=== PATIENT | male | born 1965 | race Caucasian/White ===

== ENCOUNTER 2022-08-05 12:14 | Observation (INO) | payer OTHER ==
--- NOTE | 2022-08-05 13:02 | ED ---
Chest Pain HPI - General Chief Complaint: Chest Pain Stated Complaint: Chest pain Time Seen by Provider: 08/05/22 12:24 Source: patient, RN/MD, RN notes reviewed Mode of arrival: ambulatory Limitations: no limitations - History of Present Illness Initial Comments: 56-year-old male presents emergency Department from [facility] for chest pain. Patient states she started not feeling well states his blood pressure elevating had some chest pressure, head pressure. Patient states he has had a significant cardiac history in which she had a wave one year ago. He states he recently moved from [place]. He has been followed by cardiology and is scheduled for a stress test. Patient states that he does feel improved his blood pressure was elevated upon arrival to [facility]* - Related Data Home Medications Medication Instructions Recorded Confirmed Apixaban [Eliquis] 5 mg PO BID 08/05/22 08/05/22 Azilsartan Medoxomil [Edarbi] 40 mg PO HS 08/05/22 08/05/22 Rosuvastatin Calcium [Crestor] 40 mg PO HS 08/05/22 08/05/22 Sotalol [Betapace] 40 mg PO BID 08/05/22 08/05/22 Spironolactone [Aldactone] 25 mg PO DAILY 08/05/22 08/05/22 Allergies Allergy/AdvReac Type Severity Reaction Status Date / Time No Known Allergies Allergy Verified 08/05/22 12:35 Review of Systems ROS Statement: Those systems with pertinent positive or pertinent negative responses have been documented in the HPI. ROS Other: All systems not noted in ROS Statement are negative. EKG Findings - EKG Comments: EKG Findings:: EKG performed at 12:26 sinus rhythm rate of 68 IL 150 QRS 98 QT/QTC 366 383 - EKG Results: EKG: interpreted by ENRIQUE Past Medical History Past Medical History: Hypertension History of Any Multi-Drug Resistant Organisms: None Reported Past Surgical History: Unable to Obtain Past Psychological History: No Psychological Hx Reported Smoking Status: Never smoker Past Alcohol Use History: None Reported Past Drug Use History: None Reported Course Vital Signs 08/05/22 08/05/22 08/05/22 12:16 12:44 13:00 Temperature 98.6 F Pulse Rate 72 74 73 Respiratory 18 14 10 L Rate Blood Pressure 136/98 140/124 144/106 O2 Sat by Pulse 98 97 97 Oximetry 08/05/22 08/05/22 13:30 14:00 Temperature Pulse Rate 66 Respiratory 17 Rate Blood Pressure 137/101 134/90 O2 Sat by Pulse 97 Oximetry Chest Pain MDM - MDM Was pt. sent in by a medical professional or institution (, MARY, HOSPITALITY ASSOCIATE, urgent care, hospital, or jail...) When possible be specific @ -[facility] Did you speak to anyone other than the patient for history (EMS, parent, family, police, friend...)? What history was obtained from this source @ -[facility] physician in all history Did you review nursing and triage notes (agree or disagree)? Why? @ -I reviewed and agree with nursing and triage notes Were old charts reviewed (outside hosp., previous admission, EMS record, old EKG, old radiological studies, urgent care reports/EKG's, jail records)? Report findings @ -No old charts were reviewed Differential Diagnosis (chest pain, altered mental status, abdominal pain women, abdominal pain men, vaginal bleeding, weakness, fever, dyspnea, syncope, headache, dizziness, GI bleed, back pain, seizure, CVA, palpatations, mental health, musculoskeletal)? @ -Differential Chest Pain: Stable Angina, Unstable Angina, STEMI, NSTEMI Aortic Dissection, Pneumothorax, Musculoskeletal, Esophageal Spasm GERD, Cholecystitis, Pancreatitis, Zoster, this is not meant to be an all-inclusive list. le EKG interpreted by me (3pts min.). @ -As above X-rays interpreted by me (1pt min.). @ -None done CT interpreted by me (1pt min.). @ -None done U/S interpreted by me (1pt. min.). @ -None done What testing was considered but not performed or refused? (CT, X-rays, U/S, l abs)? Why? @ -None What meds were considered but not given or refused? Why? @ -None Did you discuss the management of the patient with other professionals (professionals i.e. MARY Villareal, HOSPITALITY ASSOCIATE, lab, RT, psych nurse, social media editor, induction machine setter, teacher, equal employment opportunity officer, field case manager)? Give summary @ -Discussed the case with Dr. Matta for admission with cardiology rule out] Was smoking cessation discussed for >3mins.? @ -No Was critical care preformed (if so, how long)? @ -No Were there social determinants of health that impacted care today? How? (Homelessness, low income, unemployed, alcoholism, drug addiction, kaba sportation, low edu. Level, literacy, decrease access to med. care, prison, rehab)? @ -No Was there de-escalation of care discussed even if they declined (Discuss DNR or withdrawal of care, Hospice)? DNR status @ -No What co-morbidities impacted this encounter? (DM, HTN, Smoking, COPD, CAD, Cancer, CVA, ARF, Chemo, Hep., AIDS, mental health diagnosis, sleep apnea, morbid obesity)? @ -None Was patient admitted / discharged? Hospital course, mention meds given and route, prescriptions, significant lab abnormalities, going to OR and other pertinent info. @ -Admitted patient has significant cardiac history initial troponin, EKG unremarkable patient will be admitted for cardiac rule out Undiagnosed new problem with uncertain prognosis? @ -No Drug Therapy requiring intensive monitoring for toxicity (Heparin, Nitro, Insulin, Cardizem)? @ -No Were any procedures done? @ -No Diagnosis/symptom? @ -Chest pain Acute, or Chronic, or Acute on Chronic? @ -Acute Uncomplicated (without systemic symptoms) or Complicated (systemic symptoms)? @ -Uncomplicated Side effects of treatment? @ -No Exacerbation, Progression, or Severe Exacerbation? @ -No Poses a threat to life or bodily function? How? (Chest pain, [place], [place], pneumonia, PE, COPD, DKA, ARF, appy, cholecystitis, CVA, Diverticulitis, Homicidal, Suicidal, threat to staff... and all critical care pts) @ -yes patient has chest pain Disposition Clinical Impression: Chest pain Disposition: ADMITTED IP TO THIS HOSP Condition: Fair Time of Disposition: 13:02
[2022-08-05] MEDS ORDERED: NITROGLYCERIN SL TABS 0.4 MG TAB SUBLINGUAL PRN (13:18)
--- NOTE | 2022-08-05 15:38 | P.HPIM ---
History of Present Illness H&P Date: 08/05/22 HISTORY OF PRESENT ILLNESS This is a 56-year-old male patient not currently established but has a first appointment in October. He has a past medical history of 5 vessel CABG in July 2019 in [facility], hypertension, cardiomyopathy, atrial fibrillation, obstructive sleep apnea not currently on CPAP after losing weight. Cardiac catheterization performed in the setting of a non-ST elevated myocardial infarction in 07/28/2021 revealed LAD proximal ostial 90% and no cyst, mid circumflex 90% stenosis, mid RCA 100% stenosis and patient was recommended for coronary artery bypass graft. Details of the CABG are not available. February 2022, patient developed episode of atrial fibrillation with RVR and converted, continued on sotalol as well as eliquis. He later had a Holter monitor in April which did not reveal evidence of atrial fibrillation and recommended after 6 months without episodes of atrial fibrillation it would be reasonable to switch back to aspirin and monitor for atrial fibrillation. An echocardiogram that was performed 07/29/2021 revealed EF 50%, mild mitral regurgitation, trivial tricuspid regurgitation. A repeat echocardiogram performed 03/09/2022 revealed EF of 55%, mitral valve with trivial regurgitation, mild pulmonary hypertension. Patient states that he and his family recently moved back to [facility] 06/04 from [facility]. He had a checkup at [facility] last and was scheduled for stress test in September. Patient states there was a mixup in his blood pressure medications and he ended up taking two ARB's. Patient was started on Azilsartan but was not told to stop taking Irbesartan. He was feeling dizzy on Wednesday and called the director of events's office and was instructed to stop Irbesartan. On Wednesday, patient was found to have high blood pressure 160/116 he was also lightheaded and was unsteady on his feet. He developed a chest pressure that was a tightness. He states he had all the time and not with physical activity. He drove himself to [facility] where he had a troponin 2 negative, potassium 4.7, creatinine 0.98. His initial blood pressure 178/128. Plan was to transfer him to [facility] but he requested a transfer to [facility] instead. Patient states that he normally walks for an hour every morning on the treadmill. All 3 troponins have been negative. Cholesterol 87, LDL 127, HDL 54. Blood pressure is now 130/86, heart rate in the 60s and 70s. EKG with no acute ST changes. REVIEW OF SYSTEMS Constitutional: No fever, no chills, no night sweats. No weight change. No weakness, fatigue or lethargy. No daytime sleepiness. EENT: No headache. No blurred vision or double vision, no loss of vision. No loss of Hearing, no ringing in the ears, no dizziness. No nasal drainage or congestion. No epistaxis. No sore throat. Lungs: No shortness of breath, cough, no sputum production. No wheezing. Cardiac: Reported chest pain, no lower extremity edema. No palpitations. No paroxysmal nocturnal dyspnea. No orthopnea. Reported lightheadedness or dizziness. No syncopal episodes. Abdominal: No abdominal pain. No nausea, vomiting. No diarrhea. No constipation. No bloody or tarry stools. No loss of appetite. Genitourinary: No dysuria, increased frequency, urgency. No urinary retention. Musculoskeletal: No myalgias. No muscle weakness, no gait dysfunction, no frequent falls. No back pain. No neck pain. Integumentary: No wounds, no lesions. No rash or pruritus. No unusual bruising. No change in hair or nails. Neurologic: No aphasia. No facial droop. No change in mentation. No head injury. No headache. No paralysis. No paresthesia. Psychiatric: No depression. No anxiety. No mood swings. Endocrine: No abnormal blood sugars. No weight change. No excessive sweating or thirst. No cold intolerance. MEDICAL HISTORY Coronary artery disease Hypertension Cardiomyopathy Obstructive sleep apnea, patient scheduled for sleep study August 2022 SURGICAL HISTORY Coronary artery bypass graft of 5 vessel, 08/01/2021, Right shoulder reconstruction [place] [address] Carr Colonoscopy up-to-date 3 months ago 2022, normal SOCIAL HISTORY Patient is a lifelong nonsmoker, no alcohol use, no illicit drug use. 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 He lives at home with his and 7-1/2-year-old son. FAMILY HISTORY Mother at age 77 from colon cancer. Father at age 77 from heart failure with history of alcohol abuse and smoking. Patient is a total of 5 brothers and 5 sisters most probably have hypertension hyperlipidemia. He has one sister that is in hospice for leiomyosarcoma. No family history of coronary artery disease or diabetes. Patient has one 7 and [id number] son. PHYSICAL EXAMINATION Gen: This A 56-year-old male. Descended chair in the emergency center appears to be in no acute distress. HEENT: Head is atraumatic, normocephalic. Pupils equal, round. Sclerae is anicteric. NECK: Supple. No JVD. No lymphadenopathy. No thyromegaly. LUNGS: Clear to auscultation. No wheezes or rhonchi. No intercostal re tractions. HEART: Regular rate and rhythm. No murmur. ABDOMEN: Soft. Bowel sounds are present. No masses. No tenderness. EXTREMITIES: No pedal edema. No calf tenderness. NEUROLOGICAL: Patient is awake, alert and oriented x3. Cranial nerves 2 through 12 are grossly intact. ASSESSMENT AND PLAN 1. CHEST PAIN. Troponins have been negative 3. Patient will be continued on his home cardiac medications including aspirin 81 mg daily, Lipitor 80 mg at bedtime, losartan 25 mg at bedtime, Aldactone 25 mg daily. Cardiology consult. 2. Paroxysmal atrial fibrillation. Continue patient on eliquis 5 mg twice daily, sotalol 40 mg twice daily. 3. Hypertension. Continue patient on ARB, sotalol and Aldactone. 4. History of cardiomyopathy. Continue patient on sotalol, Aldactone 25 mg daily. 5. Obstructive sleep apnea. Patient is scheduled for sleep study in August. 6. Hyperlipidemia. Continue Crestor 40 mg at bedtime. 7. GI prophylaxis. Protonix. 8. DVT prophylaxis. Continue patient on eliquis. Patient will be placed as an observation status. DISCHARGE PLAN HOME Impression and plan of care have been directed as dictated by the signing physician. Dainsha Caceres nurse practitioner acting as scribe for signing physician. Past Medical History Past Medical History: Hypertension History of Any Multi-Drug Resistant Organisms: None Reported Past Surgical History: Unable to Obtain Past Psychological History: No Psychological Hx Reported Smoking Status: Never smoker Past Alcohol Use History: None Reported Past Drug Use History: None Reported Medications and Allergies Home Medications Medication Instructions Recorded Confirmed Type Apixaban [Eliquis] 5 mg PO BID 08/05/22 08/05/22 History Rosuvastatin Calcium [Crestor] 40 mg PO HS 08/05/22 08/05/22 History Sotalol [Betapace] 40 mg PO BID 08/05/22 08/05/22 History Spironolactone [Aldactone] 25 mg PO DAILY 08/05/22 08/05/22 History Losartan [Cozaar] 50 mg PO HS #30 tab 08/06/22 Rx Allergies Allergy/AdvReac Type Severity Reaction Status Date / Time No Known Allergies Allergy Verified 08/05/22 12:35 Physical Exam Vitals: Vital Signs Temp Pulse Resp BP Pulse Ox 08/05/22 14:00 134/90 08/05/22 13:30 66 17 137/101 97 08/05/22 13:00 73 10 L 144/106 97 08/05/22 12:44 74 14 140/124 97 08/05/22 12:16 98.6 F 72 18 136/98 98 Intake and Output 08/04/22 08/05/22 08/05/22 22:59 06:59 14:59 Other: Weight 107.955 kg
[2022-08-05] MEDS: SOTALOL 80 MG TAB PO SCH (20:20)
[2022-08-05] MEDS: APIXABAN 5 MG TAB PO SCH (20:20)
[2022-08-05] MEDS ORDERED: ATORVASTATIN 80 MG TAB PO SCH (21:00)
[2022-08-05] MEDS ORDERED: LOSARTAN 25 MG TAB PO SCH (21:00)
[2022-08-06 07:53] VITALS: BP 130/86; PULSE 62; RESP 18; TEMP 97.7
[2022-08-06] MEDS: SOTALOL 80 MG TAB PO SCH (08:35)
[2022-08-06] MEDS: APIXABAN 5 MG TAB PO SCH (08:35)
[2022-08-06] MEDS ORDERED: SODIUM CHLORIDE 0.9% 1,000 ML IV SCH (09:00)
[2022-08-06] MEDS ORDERED: ASPIRIN 81 MG PO SCH (09:00)
[2022-08-06] MEDS ORDERED: SPIRONOLACTONE 25 MG TAB PO SCH (09:00)
[2022-08-06] MEDS ORDERED: ASPIRIN 325 MG TAB PO SCH (09:00)
[2022-08-06 09:09] LABS: Chol/HDL Ratio 2.31 Ratio; LDL Cholesterol,Calculated 54.6 mg/dL (0.0-131.0); VLDL Calculation 17.48 mg/dL (5.00-40.00)
--- NOTE | 2022-08-06 10:40 | P.CRDCN ---
History of Present Illness Consult date: 08/06/22 Consult reason: chest pain, hypertension History of present illness: History of present illness: This is a 56-year-old male patient with past medical history of 5 vessel CABG in July 2019 in [facility], history of hypertension, cardiomyopathy, paroxysmal atrial fibrillation, obstructive sleep apnea not currently on CPAP after losing weight. Cardiac catheterization performed in the setting of a non- ST elevated myocardial infarction in 07/28/2021 revealed LAD proximal ostial 90% and no cyst, mid circumflex 90% stenosis, mid RCA 100% stenosis and patient was recommended for coronary artery bypass graft. Details of the CABG are not av ailable. February 2022, patient developed episode of atrial fibrillation with RVR and converted, continued on sotalol as well as eliquis. He later had a Holter monitor in April which did not reveal evidence of atrial fibrillation and recommended after 6 months without episodes of atrial fibrillation it would be reasonable to switch back to aspirin and monitor for atrial fibrillation. An echocardiogram that was performed 07/29/2021 revealed EF 50%, mild mitral regurgitation, trivial tricuspid regurgitation. A repeat echocardiogram performed 03/09/2022 revealed EF of 55%, mitral valve with trivial regurgitation, mild pulmonary hypertension. Patient states that he and his family recently moved back to [facility] 06/04 from [facility]. He had a checkup at [facility] last and was scheduled for stress test in September. Patient states there was a mixup in his blood pressure medications and he ended up taking two ARB's. Patient was started on Azilsartan but was not told to stop taking Irbesartan. He was feeling dizzy on Wednesday and called the forestry worker's office and was instructed to stop Irbesartan. On Wednesday, patient was found to have high blood pressure 160/116 he was also lightheaded and was unsteady on his feet. He developed a chest pressure that was a tightness. He states he had all the time and not with physical activity. He drove himself to [facility] where he had a troponin 2 negative, potassium 4.7, creatinine 0.98. His initial blood pressure 178/128. Plan was to transfer him to [facility] but he requested a transfer to [facility] instead. Patient states that he normally walks for an hour every morning on the treadmill. All 3 troponins have been negative. Cholesterol 87, LDL 127, HDL 54. Blood pressure is now 130/86, heart rate in the 60s and 70s. EKG sinus rhythm with no acute ST changes. Home cardiac medications: Eliquis 5 mg twice daily, azilsartan 40 mg at bedtime, Crestor 40 mg at bedtime, sotalol 40 mg twice daily, Aldactone 25 mg daily Review Of Systems: At the time of my evaluation: Constitutional: No fever, no chills. No weakness, fatigue or lethargy. EENT: No headache. No dizziness. Lungs: No shortness of breath, cough, no sputum production. No wheezing. Cardiovascular: No chest pain, no lower extremity edema. No palpitations. No paroxysmal nocturnal dyspnea. No orthopnea. No lightheadedness or dizziness. No syncopal episodes. Abdominal: No abdominal pain. No nausea, vomiting. No diarrhea. No constipation. No bloody or tarry stools. Genitourinary: No dysuria.. No urinary retention. Musculoskeletal: No myalgias. No muscle weakness, no frequent falls. No back pain. No neck pain. Integumentary: No wounds. No rash. No unusual bruising. Neurologic: No aphasia. No facial droop. No change in mentation. No head injury. No headache. Physical examination: Gen: This is a 56-year-old male. He is resting in bed and appears comfortable and in no acute distress. VS: reviewed HEENT: Head is atraumatic, normocephalic. Pupils equal, round. Sclerae is anicteric. NECK: Supple. No JVD. . LUNGS: Clear to auscultation. No wheezes or rhonchi. No intercostal retractions. HEART: Regular rate and rhythm. No murmur. ABDOMEN: Soft No tenderness. EXTREMITIES: No pedal edema. No calf tenderness. NEUROLOGICAL: Patient is awake, alert and oriented x3. Assessment: Chest pain, acute coronary syndrome has been ruled out History of coronary artery disease status post 5 vessel CABG Paroxysmal atrial fibrillation Hypertension History of cardiomyopathy Obstructive sleep apnea Hyperlipidemia Plan: Resume patient's home cardiac medications Change ARB to losartan 50 mg daily Obtain 2-D echocardiogram and Doppler study to assess cardiac structure and function Obtain stress echocardiogram today If these tests are unremarkable, patient is cleared for discharge home today. Thank you kindly for this consultation. Nurse practitioner note has been reviewed, I agree with documented findings and plan of care. Patient was seen and examined. Past Medical History Past Medical History: Hypertension History of Any Multi-Drug Resistant Organisms: None Reported Past Surgical History: Unable to Obtain Past Anesthesia/Blood Transfusion Reactions: No Reported Reaction Past Psychological History: No Psychological Hx Reported Smoking Status: Never smoker Past Alcohol Use History: None Reported Past Drug Use History: None Reported Medications and Allergies Home Medications Medication Instructions Recorded Confirmed Type Apixaban [Eliquis] 5 mg PO BID 08/05/22 08/05/22 History Azilsartan Medoxomil [Edarbi] 40 mg PO HS 08/05/22 08/05/22 History Rosuvastatin Calcium [Crestor] 40 mg PO HS 08/05/22 08/05/22 History Sotalol [Betapace] 40 mg PO BID 08/05/22 08/05/22 History Spironolactone [Aldactone] 25 mg PO DAILY 08/05/22 08/05/22 History Allergies Allergy/AdvReac Type Severity Reaction Status Date / Time No Known Allergies Allergy Verified 08/05/22 12:35 Physical Exam Vitals: Vital Signs Temp Pulse Pulse Resp BP BP Pulse Ox 08/06/22 01:37 98.1 F 73 16 139/81 98 08/05/22 19:52 97.5 F L 62 18 130/85 98 08/05/22 15:00 98.2 F 75 16 145/89 98 08/05/22 14:00 134/90 08/05/22 13:30 66 17 137/101 97 08/05/22 13:00 73 10 L 144/106 97 08/05/22 12:44 74 14 140/124 97 08/05/22 12:16 98.6 F 72 18 136/98 98 Intake and Output 08/05/22 08/06/22 08/06/22 22:59 06:59 14:59 Other: Voiding Method Toilet # Voids 1 2 Weight 107.955 kg Results Cardiac Enzymes 08/05/22 08/05/22 08/05/22 Range/Units 13:03 15:54 19:40 Troponin I <0.012 <0.012 <0.012 (0.000-0.034) ng/mL Current Medications Generic Name Dose Route Start Last Admin Trade Name Freq PRN Reason Stop Dose Admin Apixaban 5 mg 08/05/22 21:00 08/05/22 20:20 Apixaban 5 Mg Tab PO 5 mg BID SHA Administration Protocol Aspirin 81 mg 08/06/22 09:00 Aspirin 81 Mg PO DAILY SHA Atorvastatin Calcium 80 mg 08/05/22 21:00 08/05/22 20:20 Atorvastatin 80 Mg Tab PO 80 mg HS SHA Administration Losartan Potassium 25 mg 08/05/22 21:00 08/05/22 20:21 Losartan 25 Mg Tab PO 25 mg HS SHA Administration Nitroglycerin 0.4 mg 08/05/22 13:18 Nitroglycerin Sl Tabs 0.4 Mg Tab SUBLINGUAL Q5M PRN Chest Pain Sotalol HCl 40 mg 08/05/22 21:00 08/05/22 20:20 Sotalol 80 Mg Tab PO 40 mg BID SHA Administration Spironolactone 25 mg 08/06/22 09:00 Spironolactone 25 Mg Tab PO DAILY [facility] Intake and Output 08/05/22 08/06/22 08/06/22 22:59 06:59 14:59 Other: Voiding Method Toilet # Voids 1 2 Weight 107.955 kg
--- NOTE | 2022-08-06 10:46 | P.CRDCN ---
History of Present Illness Consult date: 08/06/22 Consult reason: chest pain, hypertension History of present illness: History of present illness: This is a 56-year-old male patient with past medical history of 5 vessel CABG in July 2019 in [facility], history of hypertension, cardiomyopathy, paroxysmal atrial fibrillation, obstructive sleep apnea not currently on CPAP after losing weight. Cardiac catheterization performed in the setting of a non- ST elevated myocardial infarction in 07/28/2021 revealed LAD proximal ostial 90% and no cyst, mid circumflex 90% stenosis, mid RCA 100% stenosis and patient was recommended for coronary artery bypass graft. Details of the CABG are not av ailable. February 2022, patient developed episode of atrial fibrillation with RVR and converted, continued on sotalol as well as eliquis. He later had a Holter monitor in April which did not reveal evidence of atrial fibrillation and recommended after 6 months without episodes of atrial fibrillation it would be reasonable to switch back to aspirin and monitor for atrial fibrillation. An echocardiogram that was performed 07/29/2021 revealed EF 50%, mild mitral regurgitation, trivial tricuspid regurgitation. A repeat echocardiogram performed 03/09/2022 revealed EF of 55%, mitral valve with trivial regurgitation, mild pulmonary hypertension. Patient states that he and his family recently moved back to [facility] 06/04 from [facility]. He had a checkup at [facility] last and was scheduled for stress test in September. Patient states there was a mixup in his blood pressure medications and he ended up taking two ARB's. Patient was started on Azilsartan but was not told to stop taking Irbesartan. He was feeling dizzy on Wednesday and called the parking meter installer's office and was instructed to stop Irbesartan. On Wednesday, patient was found to have high blood pressure 160/116 he was also lightheaded and was unsteady on his feet. He developed a chest pressure that was a tightness. He states he had all the time and not with physical activity. He drove himself to [facility] where he had a troponin 2 negative, potassium 4.7, creatinine 0.98. His initial blood pressure 178/128. Plan was to transfer him to [facility] but he requested a transfer to [facility] instead. Patient states that he normally walks for an hour every morning on the treadmill. All 3 troponins have been negative. Cholesterol 87, LDL 127, HDL 54. Blood pressure is now 130/86, heart rate in the 60s and 70s. EKG sinus rhythm with no acute ST changes. Home cardiac medications: Eliquis 5 mg twice daily, azilsartan 40 mg at bedtime, Crestor 40 mg at bedtime, sotalol 40 mg twice daily, Aldactone 25 mg daily Review Of Systems: At the time of my evaluation: Constitutional: No fever, no chills. No weakness, fatigue or lethargy. EENT: No headache. No dizziness. Lungs: No shortness of breath, cough, no sputum production. No wheezing. Cardiovascular: No chest pain, no lower extremity edema. No palpitations. No paroxysmal nocturnal dyspnea. No orthopnea. No lightheadedness or dizziness. No syncopal episodes. Abdominal: No abdominal pain. No nausea, vomiting. No diarrhea. No constipation. No bloody or tarry stools. Genitourinary: No dysuria.. No urinary retention. Musculoskeletal: No myalgias. No muscle weakness, no frequent falls. No back pain. No neck pain. Integumentary: No wounds. No rash. No unusual bruising. Neurologic: No aphasia. No facial droop. No change in mentation. No head injury. No headache. Physical examination: Gen: This is a 56-year-old male. He is resting in bed and appears comfortable and in no acute distress. VS: reviewed HEENT: Head is atraumatic, normocephalic. Pupils equal, round. Sclerae is anicteric. NECK: Supple. No JVD. . LUNGS: Clear to auscultation. No wheezes or rhonchi. No intercostal retractions. HEART: Regular rate and rhythm. No murmur. ABDOMEN: Soft No tenderness. EXTREMITIES: No pedal edema. No calf tenderness. NEUROLOGICAL: Patient is awake, alert and oriented x3. Assessment: Chest pain, acute coronary syndrome has been ruled out History of coronary artery disease status post 5 vessel CABG Paroxysmal atrial fibrillation Hypertension History of cardiomyopathy Obstructive sleep apnea Hyperlipidemia Plan: Resume patient's home cardiac medications Change ARB to losartan 50 mg daily Obtain 2-D echocardiogram and Doppler study to assess cardiac structure and function Obtain stress echocardiogram today If these tests are unremarkable, patient is cleared for discharge home today. Thank you kindly for this consultation. Nurse practitioner note has been reviewed, I agree with documented findings and plan of care. Patient was seen and examined. Past Medical History Past Medical History: Hypertension History of Any Multi-Drug Resistant Organisms: None Reported Past Surgical History: Unable to Obtain Past Anesthesia/Blood Transfusion Reactions: No Reported Reaction Past Psychological History: No Psychological Hx Reported Smoking Status: Never smoker Past Alcohol Use History: None Reported Past Drug Use History: None Reported Medications and Allergies Home Medications Medication Instructions Recorded Confirmed Type Apixaban [Eliquis] 5 mg PO BID 08/05/22 08/05/22 History Rosuvastatin Calcium [Crestor] 40 mg PO HS 08/05/22 08/05/22 History Sotalol [Betapace] 40 mg PO BID 08/05/22 08/05/22 History Spironolactone [Aldactone] 25 mg PO DAILY 08/05/22 08/05/22 History Losartan [Cozaar] 50 mg PO HS #30 tab 08/06/22 Rx Allergies Allergy/AdvReac Type Severity Reaction Status Date / Time No Known Allergies Allergy Verified 08/05/22 12:35 Physical Exam Vitals: Vital Signs Temp Pulse Pulse Resp BP BP Pulse Ox 08/06/22 07:00 97.7 F 62 18 130/86 98 08/06/22 01:37 98.1 F 73 16 139/81 98 08/05/22 19:52 97.5 F L 62 18 130/85 98 08/05/22 15:00 98.2 F 75 16 145/89 98 08/05/22 14:00 134/90 08/05/22 13:30 66 17 137/101 97 08/05/22 13:00 73 10 L 144/106 97 08/05/22 12:44 74 14 140/124 97 08/05/22 12:16 98.6 F 72 18 136/98 98 Intake and Output 08/05/22 08/06/22 08/06/22 22:59 06:59 14:59 Other: Voiding Method Toilet Toilet # Voids 1 2 Weight 107.955 kg Results Cardiac Enzymes 08/05/22 08/05/22 08/05/22 Range/Units 13:03 15:54 19:40 Troponin I <0.012 <0.012 <0.012 (0.000-0.034) ng/mL Lipids 08/06/22 Range/Units 06:00 Triglycerides 87.40 (0.00-149.00) mg/dL Cholesterol 127.00 (0.00-200.00) mg/dL HDL Cholesterol 54.90 (40.00-60.00) mg/dL Cholesterol/HDL Ratio 2.31 Ratio Current Medications Generic Name Dose Route Start Last Admin Trade Name Freq PRN Reason Stop Dose Admin Apixaban 5 mg 08/05/22 21:00 08/06/22 08:35 Apixaban 5 Mg Tab PO 5 mg BID SHA Administration Protocol Aspirin 81 mg 08/06/22 09:00 08/06/22 08:36 Aspirin 81 Mg PO 81 mg DAILY SHA Administration Atorvastatin Calcium 80 mg 08/05/22 21:00 08/05/22 20:20 Atorvastatin 80 Mg Tab PO 80 mg HS SHA Administration Sodium Chloride 1,000 mls @ 75 mls/hr 08/06/22 09:00 08/06/22 08:54 Saline 0.9% IV 75 mls/hr .[id number] SHA Administration Losartan Potassium 50 mg 08/06/22 21:00 Losartan 50 Mg Tab PO HS SHA Nitroglycerin 0.4 mg 08/05/22 13:18 Nitroglycerin Sl Tabs 0.4 Mg Tab SUBLINGUAL Q5M PRN Chest Pain Sotalol HCl 40 mg 08/05/22 21:00 08/06/22 08:35 Sotalol 80 Mg Tab PO 40 mg BID SHA Administration Spironolactone 25 mg 08/06/22 09:00 08/06/22 08:35 Spironolactone 25 Mg Tab PO 25 mg DAILY SHA Administration Intake and Output 08/05/22 08/06/22 08/06/22 22:59 06:59 14:59 Other: Voiding Method Toilet Toilet # Voids 1 2 Weight 107.955 kg
--- NOTE | 2022-08-06 12:09 | P.DS ---
Providers Date of admission: 08/05/22 13:03 Expected date of discharge: 08/06/22 Attending physician: Babita Matta Consults: 08/05/22 13:18 Consult Physician Urgent Consulting Provider: Pranay Mckeon Consult Reason/Comments: chest pain Do you want consulting provider notified?: Yes Primary care physician: Babita Matta [facility] Course: HISTORY OF PRESENT ILLNESS This is a 56-year-old male patient not currently established but has a first appointment in October. He has a past medical history of 5 vessel CABG in July 2019 in [facility], hypertension, cardiomyopathy, atrial fibrillation, obstructive sleep apnea not currently on CPAP after losing weight. Cardiac catheterization performed in the setting of a non-ST elevated myocardial infarction in 07/28/2021 revealed LAD proximal ostial 90% and no cyst, mid circumflex 90% stenosis, mid RCA 100% stenosis and patient was recommended for coronary artery bypass graft. Details of the CABG are not available. February 2022, patient developed episode of atrial fibrillation with RVR and converted, continued on sotalol as well as eliquis. He later had a Holter monitor in April which did not reveal evidence of atrial fibrillation and recommended after 6 months without episodes of atrial fibrillation it would be reasonable to switch back to aspirin and monitor for atrial fibrillation. An echocardiogram that was performed 07/29/2021 revealed EF 50%, mild mitral regurgitation, trivial tricuspid regurgitation. A repeat echocardiogram performed 03/09/2022 revealed EF of 55%, mitral valve with trivial regurgitation, mild pulmonary hypertension. Patient states that he and his family recently moved back to [facility] 06/04 from [facility]. He had a checkup at [facility] last and was scheduled for stress test in September. Patient states there was a mixup in his blood pressure medications and he ended up taking two ARB's. Patient was started on Azilsartan but was not told to stop taking Irbesartan. He was feeling dizzy on Wednesday and called the front desk monitor's office and was instructed to stop Irbesartan. On Wednesday, patient was found to have high blood pressure 160/116 he was also lightheaded and was unsteady on his feet. He developed a chest pressure that was a tightness. He states he had all the time and not with physical activity. He drove himself to [facility] where he had a troponin 2 negative, potassium 4.7, creatinine 0.98. His initial blood pressure 178/128. Plan was to transfer him to [facility] but he requested a transfer to [facility] instead. Patient states that he normally walks for an hour every morning on the treadmill. All 3 troponins have been negative. Cholesterol 87, LDL 127, HDL 54. Blood pressure is now 13 0/86, heart rate in the 60s and 70s. EKG with no acute ST changes. 08/06: Patient has been seen by cardiology and losartan has been increased to 50 mg. Soap Press Feeder recommended change of ARB to losartan at time of discharge. The patient denies having any chest pain. No palpitations. Echocardiogram reveals Stress echocardiogram reveals DISCHARGE DIAGNOSES 1. CHEST PAIN, acute coronary syndrome ruled out. 2. Paroxysmal atrial fibrillation. 3. Hypertension. 4. History of cardiomyopathy. 5. Obstructive sleep apnea. 6. Hyperlipidemia. DISCHARGE PLAN HOME Greater than 35 minutes was utilized and coordinating patient's discharge. Impression and plan of care have been directed as dictated by the signing physician. Danisha Caceres nurse practitioner acting as scribe for signing physician. Patient Condition at Discharge: Good Plan - Discharge Summary Discharge Rx Participant: No New Discharge Prescriptions: New Losartan [Cozaar] 50 mg PO HS #30 tab Continue Spironolactone [Aldactone] 25 mg PO DAILY Sotalol [Betapace] 40 mg PO BID Rosuvastatin Calcium [Crestor] 40 mg PO HS Apixaban [Eliquis] 5 mg PO BID Discontinued Azilsartan Medoxomil [Edarbi] 40 mg PO HS Discharge Medication List Apixaban [Eliquis] 5 mg PO BID 08/05/22 [History] Rosuvastatin Calcium [Crestor] 40 mg PO HS 08/05/22 [History] Sotalol [Betapace] 40 mg PO BID 08/05/22 [History] Spironolactone [Aldactone] 25 mg PO DAILY 08/05/22 [History] Losartan [Cozaar] 50 mg PO HS #30 tab 08/06/22 [Rx] Follow up Appointment(s)/Referral(s): Babita Matta MD [Primary Care Provider] - 1 Week Kim Fernando MD [STAFF PHYSICIAN] - 2 Weeks Activity/Diet/Wound Care/Special Instructions: MONITOR BP AND TAKE LIST TO YOUR APPOINTMENTS Discharge Disposition: HOME SELF-CARE
[2022-08-06] MEDS ORDERED: LOSARTAN 50 MG TAB PO SCH (21:00)
--- NOTE | 2022-08-07 12:11 | CA ---
Transthoracic Echo Report Name: Suresh Ng Age: 56 Gender: M : 1965 Exam Date: 08/06/2022 11:13 Exam Location: [place] [facility] Ht (in): 69 Wt (lb): 238 Ordering Physician: Danisha Caceres Attending/Referring Phys: [id number], Morris Polysomnograph Tech Jaylene Royal [facility] Procedure CPT: Indications: LVF Cardiac Hx: Technical Quality: Fair Contrast 1: Total Dose (mL): Contrast 2: Total Dose (mL): MEASUREMENTS (Male / Female) Normal Values 2D ECHO LV Diastolic Diameter PLAX 5.2 cm 4.2 - 5.9 / 3.9 - 5.3 cm LV Systolic Diameter PLAX 3.3 cm IVS Diastolic Thickness 0.9 cm 0.6 - 1.0 / 0.6 - 0.9 cm LVPW Diastolic Thickness 1.0 cm 0.6 - 1.0 / 0.6 - 0.9 cm LV Relative Wall Thickness 0.4 Ascending Aorta Diameter 3.6 cm M-MODE Aortic Root Diameter MM 3.2 cm LA Systolic Diameter MM 4.9 cm LA Ao Ratio MM 1.5 AV Cusp Separation MM 2.3 cm DOPPLER AV Peak Velocity 111.0 cm/s AV Peak Gradient 4.9 mmHg AV Mean Velocity 86.9 cm/s AV Mean Gradient 3.2 mmHg AV Velocity Time Integral 21.9 cm LVOT Peak Velocity 88.5 cm/s LVOT Peak Gradient 3.1 mmHg LVOT Velocity Time Integral 17.5 cm Mitral E Point Velocity 85.6 cm/s Mitral A Point Velocity 69.4 cm/s Mitral E to A Ratio 1.2 MV Deceleration Time 193.7 ms LV E' Lateral Velocity 8.8 cm/s Mitral E to LV E' Lateral Ratio 9.7 LV E' Septal Velocity 8.5 cm/s Mitral E to LV E' Septal Ratio 10.0 TR Peak Velocity 230.9 cm/s TR Peak Gradient 21.3 mmHg Right Atrial Pressure 3.0 mmHg Pulmonary Artery Systolic Pressu 24.3 mmHg Right Ventricular Systolic Press 26.3 mmHg FINDINGS Left Ventricle Normal Left ventricular wall thickness, systolic function with no obvious regional wall motion abnormalities. Mild left ventricular dilatation. Left ventricular ejection fraction is estimated at 55-60%. Right Ventricle Mild right ventricular dilatation. Right Atrium Normal right atrial size. Left Atrium Normal left atrial size. Mitral Valve Structurally normal mitral valve. Mild mitral regurgitation. Aortic Valve Trileaflet aortic valve. No aortic valve stenosis or regurgitation. Tricuspid Valve Structurally normal tricuspid valve. Mild tricuspid regurgitation. Pulmonic Valve Structurally normal pulmonic valve. Pericardium No pericardial effusion. Aorta Normal size aortic root. Mildly dilated proximal ascending aorta (tube). CONCLUSIONS Normal LV size and systolic function mild mitral and tricuspid regurgitation. No pericardial effusion. Previewed by: Dr. Kmi Fernando MD (Electronically Signed) Final Date: 07 August 2022 12:10
--- NOTE | 2022-08-07 12:14 | CA ---
Stress Echo Report Suresh Ng Age: 56 Gender: M : 1965 Exam Date: 08/06/2022 10:21 Exam Location: [place] [facility] Ht (in): 69 Wt (lb): 238 Ordering Physician: Danisha Caceres Referring Physician: [id number] Stain Sprayer: DEVIN BOOKER Technologist Procedure CPT: Indication: CP ICD-9 Codes: Rhythm: Patient History: CHEST PAIN, ANGINA, HTN, ELEVATED CHOLESTEROL LEVELS, CARDIAC CATH, CABG X 5 Cardiac Medications: Medications in past 24 hours: Contrast: Stress Results Protocol: Chan Total dose(mL): Exercise Duration (min:sec): 10:[address] Depression (mm): Angina Score: Maradiaga Score: METS: 12.1 Resting HR: 72 Resting BP: 143 / 91 Peak HR: 166 Peak BP: 180 / 84 Max Predicted HR: 166 100 % Max Predicted HR Target HR: 141 Double Product: [id number] Stress Summary: BP Response: Reason for Termination: MAX EXERTION/TARGET HR Cardiac Symptoms: NO SYMPTOMS ECG Analysis Resting ECG: Stress ECG: Arrhythmia: Echo Analysis Resting Echo: Peak Echo Analysis: MEASUREMENTS (Male/Female) Normal Values CONCLUSIONS Baseline EKG revealed a normal sinus rhythm without significant ST-T changes. Patient walked on a standard Chan protocol for 10 minutes 30 seconds and achieved a maximum heart rate of 166 bpm. Resting heart rate was 72 bpm. He did not have any angina or arrhythmia EKG did not reveal any ST segment changes to indicate ischemia. There was no arrhythmia. This is a negative stress test by EKG criteria with excellent exercise capacity. Baseline echo images revealed normal wall motion wall thickening of all segments. At peak exercise there was good augmentation of the front wall motion wall thickening of all segments suggesting that there is no evidence of any stress-induced ischemia on this study. Final impression: #1 normal stress test by EKG criteria with excellent exercise capacity #2 normal stress echocardiogram without evidence of ischemia with excellent exercise capacity Dr. Kim Fernando MD (Electronically Signed) Final Date: 07 August 2022 12:13
== END 2022-08-06 12:56 | disposition home or self-care (01) ==
LOC: EC 12:14 → 6NMEDSUR 13:03
PROVIDERS: ADMIT Internal Medicine; ATTEND Internal Medicine
DX: R07.89 Other chest pain (principal); I10 Essential (primary) hypertension; I42.9 Cardiomyopathy, unspecified; I48.0 Paroxysmal atrial fibrillation; G47.33 Obstructive sleep apnea (adult) (pediatric); I08.1 Rheumatic disorders of both mitral and tricuspid valves; I25.10 Atherosclerotic heart disease of native coronary artery without angina pectoris; E78.5 Hyperlipidemia, unspecified; I25.2 Old myocardial infarction; Z79.01 Long term (current) use of anticoagulants; Z79.899 Other long term (current) drug therapy; Z95.1 Presence of aortocoronary bypass graft; Z80.0 Family history of malignant neoplasm of digestive organs; Z63.4 Disappearance and death of family member; Z82.49 Family history of ischemic heart disease and other diseases of the circulatory system
CPT/HCPCS: 99285; 93306; 93351; 80061; 84484; G0378 ×2

== ENCOUNTER 2023-02-10 16:17 | Emergency (ER) | payer OTHER ==
--- NOTE | 2023-02-10 16:39 | ED ---
Chest Pain HPI - General Source: patient, RN notes reviewed Mode of arrival: ambulatory Limitations: no limitations <Yulia Vance - Last Filed: 02/10/23 16:38> - General Source: RN notes reviewed, old records reviewed - History of Present Illness MD Complaint: chest pain, other (Patient chest tightness with fatigue for a few weeks now) -: week(s) Onset: during rest, during exertion Pain Location: substernal Pain Radiation: none Severity: moderate Severity scale (1-10): 4 Quality: tightness Consistency: constant Improves With: nothing Worsens With: nothing Anginal Symptoms: dyspnea Treatments Prior to Arrival: none <Danyel Dickinson - Last Filed: 02/21/23 20:49> - General Chief Complaint: Chest Pain Stated Complaint: chest pain Time Seen by Provider: 02/10/23 16:38 - History of Present Illness Initial Comments: Patient is a 57-year-old male presented ER chief complaint chest pain. Patient does have an extensive cardiac history. 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 Patient states the pain has been progressing for the past week. He also is endorsing exertional dyspnea. Stating it is difficult to shower without losing his breath. Patient denies any fevers, chills, night sweats. (Yulia Vance) This is a 57-year-old male presents today for evaluation of chest pain with history of CABG. Now stemming from his symptoms with significant dehydration syncopal event secondary diarrhea sometime around Thanksgiving patient states his exercise tolerance have been decreased with increasing weakness and patient states he just feels tired. (Danyel Dickinson) - Related Data Home Medications Medication Instructions Recorded Confirmed Apixaban [Eliquis] 5 mg PO BID 08/05/22 08/05/22 Rosuvastatin Calcium [Crestor] 40 mg PO HS 08/05/22 08/05/22 Sotalol [Betapace] 40 mg PO BID 08/05/22 08/05/22 Spironolactone [Aldactone] 25 mg PO DAILY 08/05/22 08/05/22 Previous Rx's Medication Instructions Recorded Losartan [Cozaar] 50 mg PO HS #30 tab 08/06/22 Allergies Allergy/AdvReac Type Severity Reaction Status Date / Time No Known Allergies Allergy Verified 02/10/23 16:22 Review of Systems ROS Other: All systems not noted in ROS Statement are negative. <Yulia Vance - Last Filed: 02/10/23 16:38> ROS Other: All systems not noted in ROS Statement are negative. <Danyel Dickinson - Last Filed: 02/21/23 20:49> ROS Statement: Those systems with pertinent positive or pertinent negative responses have been documented in the HPI. Past Medical History Past Medical History: Hypertension History of Any Multi-Drug Resistant Organisms: None Reported Past Surgical History: Unable to Obtain Past Anesthesia/Blood Transfusion Reactions: No Reported Reaction Past Psychological History: No Psychological Hx Reported Smoking Status: Never smoker Past Alcohol Use History: None Reported Past Drug Use History: None Reported <Yulia Vance - Last Filed: 02/10/23 16:38> General Exam Limitations: no limitations <MikeyIsabella villarrealnn - Last Filed: 02/10/23 16:38> General appearance: alert, in no apparent distress, anxious Head exam: Present: atraumatic, normocephalic, normal inspection Eye exam: Present: normal appearance, PERRL, EOMI. Absent: scleral icterus, conjunctival injection, periorbital swelling ENT exam: Present: normal exam, mucous membranes moist Neck exam: Present: normal inspection. Absent: tenderness, meningismus, lymphadenopathy Respiratory exam: Present: normal lung sounds bilaterally. Absent: respiratory distress, wheezes, rales, rhonchi, stridor Cardiovascular Exam: Present: regular rate, normal rhythm, normal heart sounds. Absent: systolic murmur, diastolic murmur, rubs, gallop, clicks GI/Abdominal exam: Present: soft, normal bowel sounds. Absent: distended, tenderness, guarding, rebound, rigid Extremities exam: Present: normal inspection, full ROM, normal capillary refill. Absent: tenderness, pedal edema, joint swelling, calf tenderness Back exam: Present: normal inspection Neurological exam: Present: alert, oriented X3, CN II-XII intact Psychiatric exam: Present: normal affect, normal mood Skin exam: Present: warm, dry, intact, normal color. Absent: rash <Danyel Dickinson - Last Filed: 02/21/23 20:49> - General Exam Comments Initial Comments: Visual Physical Exam Vital signs reviewed General: Well-appearing, nontoxic, no acute distress. Head: Normocephalic, atraumatic Eyes: PERRLA, EOMI ENT: Airway patent Chest: Nonlabored breathing Skin: No visual rash, normal skin tone Neuro: Alert and oriented 3 Musculoskeletal: No gross abnormalities (Yulia Vance) Course <Danyel Dickinson - Last Filed: 02/21/23 20:49> Vital Signs 02/10/23 02/10/23 02/11/23 16:21 22:31 00:38 Temperature 98.6 F 97.8 F 97.9 F Pulse Rate 88 73 18 L Respiratory 16 16 74 H Rate Blood Pressure 102/70 120/83 137/87 O2 Sat by Pulse 96 97 98 Oximetry - Reevaluation(s) Reevaluation #1: 02/11/23 00:22 Records reviewed (Danyel Dickinson) Reevaluation #2: 02/11/23 00:22 Patient symptoms are improved, patient has no current chest pain (Danyel Dickinson) Reevaluation #3: 02/11/23 00:22 Patient informed results and questions answered (Danyel Dickinson) Reevaluation #4: 02/11/23 00:22 Was pt. sent in by a medical professional or institution ([facility], D[employer] INSPECTOR, urgent care, hospital, or prison...) When possible be specific @ -no Did you speak to anyone other than the patient for history (EMS, parent, family, police, friend...)? What history was obtained from this source @ -no Did you review nursing and triage notes (agree or disagree)? Why? @ -agree Are old charts reviewed (outside hosp., previous admission, EMS record, old EKG, old radiological studies, urgent care reports/EKG's, prison records)? Report findings @ -yes Differential Diagnosis (chest pain, altered mental status, abdominal pain women, abdominal pain men, vaginal bleeding, weakness, fever, dyspnea, syncope, hea dache, dizziness, GI bleed, back pain, seizure, CVA, palpatations, mental health, musculoskeletal)? @ -prior EKG interpreted by me (3pts min.). @ -yes X-rays interpreted by me (1pt min.). @ -yes negatie for acute disease CT interpreted by me (1pt min.). @ -no U/S interpreted by me (1pt. min.). @ -no What testing was considered but not performed or refused? (CT, X-rays, U/S, labs)? Why? @ -none What meds were considered but not given or refused? Why? @ -none Did you discuss the management of the patient with other professionals (professionals i.e. , PA, D[employer] CLOTH INSPECTOR, lab, RT, psych nurse, social science manager, psychiatry adult physician, teacher, chief security officer, case preparer and liner)? Give summary @ -no Was smoking cessation discussed for >3mins.? @ -no Was critical care preformed (if so, how long)? @ -no Were there social determinants of health that impacted care today? How? (Homelessness, low income, unemployed, alcoholism, drug addiction, transportation, low edu. Level, literacy, decrease access to med. care, penitentiary, rehab)? @ -none Was there de-escalation of care discussed even if they declined (Discuss DNR or withdrawal of care, Hospice)? DNR status @ -no What co-morbidities impacted this encounter? (DM, HTN, Smoking, COPD, CAD, Cancer, CVA, ARF, Chemo, Hep., AIDS, mental health diagnosis, sleep apnea, morbid obesity)? @ -none Was patient admitted / discharged? Hospital course, mention meds given and ro red devil, prescriptions, significant lab abnormalities, going to OR and other pertinent info. @ - 57 male with chest pain, chest pain with cardiac history a patient feels well here in the ER troponin is negative 2 and patient prefers discharged home, Discharged Undiagnosed new problem with uncertain prognosis? @ -no Drug Therapy requiring intensive monitoring for toxicity (Heparin, Nitro, Insulin, Cardizem)? @ -no Were any procedures done? @ -no Diagnosis/symptom? @ -Chest pain Acute, or Chronic, or Acute on Chronic? @ -Acute Uncomplicated (without systemic symptoms) or Complicated (systemic symptoms)? @ -Complicated Side effects of treatment? @ -no Exacerbation, Progression, or Severe Exacerbation? @ -exacerbation Poses a threat to life or bodily function? How? (Chest pain, [place], [place], pneumonia, PE, COPD, DKA, ARF, appy, cholecystitis, CVA, Diverticulitis, Homicidal, Suicidal, threat to staff... and all critical care pts) @ -yes acute ACS (Danyel Dickinson) Reevaluation #5: 02/11/23 00:23 Differential Chest Pain: Stable Angina, Unstable Angina, STEMI, NSTEMI Aortic Dissection, Pneumothorax, Musculoskeletal, Esophageal Spasm GERD, Cholecystitis, Pancreatitis, Zoster, this is not meant to be an all-inclusive list. (Danyel Dickinson) Chest Pain MDM <Yulia Vance - Last Filed: 02/10/23 16:38> <Danyel Dickinson - Last Filed: 02/21/23 20:49> - MDM I performed the quick note portion of the exam. Electronically signed by Yulia Vance PA-C (Yulia Vance) 57 male with chest pain, chest pain with cardiac history a patient feels well here in the ER troponin is negative 2 and patient prefers discharged home (Danyel Dickinson) Disposition <Yulia Vance - Last Filed: 02/10/23 16:38> Is patient prescribed a controlled substance at d/c from ED?: No Time of Disposition: 00:20 <Danyel Dickinson - Last Filed: 02/21/23 20:49> Clinical Impression: Chest pain Disposition: HOME SELF-CARE Condition: Good Instructions (If sedation given, give patient instructions): Chest Pain (ED) Referrals: Babita Matta MD [Primary Care Provider] - 1-2 days
[2023-02-10 16:51] LABS: Basophils % (A) 1 %; Eosinophils # (A) 0.2 k/uL (0-0.7); Eosinophils % (A) 3 %; HCT 43.1 % (39.0-53.0); HGB 14.5 gm/dL (13.0-17.5); Lymphocytes % (A) 22 %; MCH 30.2 pg (25.0-35.0); MCHC 33.6 g/dL (31.0-37.0); MCV 89.8 fL (80.0-100.0); Mean Platelet Volume 7.7; Monocytes # (A) 0.5 k/uL (0-1.0); Monocytes % (A) 5 %; Neutrophils # (A) 6.2 k/uL (1.3-7.7); Neutrophils % (A) 67 %; Platelet Count 309 k/uL (150-450); WBC 9.1 k/uL (3.8-10.6)
[2023-02-10 17:07] LABS: ALT 47 U/L (4-49); AST 35 U/L (17-59); African American GFR (CKD) 80 (>60 ml/min/1.73 sqM); Albumin 3.8 g/dL (3.5-5.0); Alkaline Phosphatase 76 U/L (38-126); Anion Gap 11 mmol/L; Blood Urea Nitrogen 30 mg/dL (9-20); Calcium 9.3 mg/dL (8.4-10.2); Carbon Dioxide 24 mmol/L (22-30); Chloride 102 mmol/L (98-107); Glucose 121 mg/dL (74-99); Magnesium 2.1 mg/dL (1.6-2.3); Non-African American GFR(CKD) 69 (>60 ml/min/1.73 sqM); Phosphorus 4.4 mg/dL (2.5-4.5); Potassium 4.4 mmol/L (3.5-5.1); Sodium 137 mmol/L (137-145); Total Bilirubin 0.4 mg/dL (0.2-1.3); Total Protein 6.4 g/dL (6.3-8.2)
[2023-02-10 17:14] LABS: INR 0.9 (<1.2); Prothrombin Time 10.1 sec (10.0-12.5)
--- NOTE | 2023-02-10 17:40 | XR ---
EXAMINATION TYPE: XR chest 2V DATE OF EXAM: 02/10/2023 5:16 PM CLINICAL INDICATION:Male, 57 years old with history of Chest Pain; [facility] COMPARISON: None TECHNIQUE: XR chest 2V Frontal and lateral views of the chest. FINDINGS: Lungs/Pleura: There is no evidence of pleural effusion, focal consolidation, or pneumothorax. Pulmonary vascularity: Unremarkable. Heart/mediastinum: Cardiomediastinal silhouette is enlarged and stable. Musculoskeletal: No acute osseous pathology. Fixation hardware in the right proximal humerus. Other findings: None IMPRESSION: Cardiomegaly and mild pulmonary vascular congestion. Correlate with BNP for congestive heart failure.
[2023-02-11 00:55] VITALS: BP 137/87; PULSE 18; RESP 74; TEMP 97.9
== END 2023-02-11 00:37 | disposition home or self-care (01) ==
LOC: EC 16:17
DX: R07.89 Other chest pain (principal); I10 Essential (primary) hypertension; Z79.01 Long term (current) use of anticoagulants; Z79.899 Other long term (current) drug therapy
CPT/HCPCS: 36415; 71046; 80053; 83735; 84100; 84484; 85025; 85379; 85610; 85730; 93005; 99285

== ENCOUNTER → 2023-02-23 | Outpatient (CLI) | payer OTHER ==
--- NOTE | 2023-02-23 17:11 | CT ---
EXAMINATION TYPE: CT angio chest, without and with DATE OF EXAM: 02/23/2023 COMPARISON: Radiograph 02/10/2023 HISTORY: 57-year-old male with I25.810, R07.89, Chest pressure x 1 month, increased pressure the last week or two TECHNIQUE: Contiguous axial scanning of the chest before and after the administration of 100 cc mL of Isovue 370. Coronal/sagittal reconstructions performed. 3-D reconstructions generated on a [employer] workstation. CT DLP: 1638.2mGycm. Automatic exposure control utilized for a dose reduction. FINDINGS: Median sternotomy wires are present with post-CABG changes. Heart normal size without pericardial effusion. Noncontrast images show no evidence for acute intracranial hematoma. The aorta is normal caliber with out evidence for aortic dissection. Conventional vessel branching anatomy. A few calcified lymph nodes left hilum and left posterior mediastinum suggesting prior granulomatous disease. No thoracic lymphadenopathy by CT size criteria. [id number] diffuse bronchial wall thickening. There is some strandy atelectasis at the lung bas es. No consolidation or pleural effusion. Tiny hiatal hernia. Underlying hepatic steatosis. Calcified granulomas in the spleen. Mild stool kody en. Left-sided colonic diverticulosis. Bones: Accentuated mid to lower thoracic kyphosis with mild to moderate degenerative disc disease. IMPRESSION: 1. No evidence for acute aortic injury or aortic aneurysm. 2. Post-CABG changes. 3. Bronchial wall thickening may be seen with bronchitis or chronic asthma. There is also evidence of prior granulomatous disease. 4. Tiny hiatal hernia and hepatic steatosis.
== END ==
LOC: RADCTMAIN 14:56
PROVIDERS: ATTEND Internal Medicine
DX: J98.09 Other diseases of bronchus, not elsewhere classified (principal); J84.10 Pulmonary fibrosis, unspecified; K76.0 Fatty (change of) liver, not elsewhere classified; K44.9 Diaphragmatic hernia without obstruction or gangrene; I25.810 Atherosclerosis of coronary artery bypass graft(s) without angina pectoris; R07.89 Other chest pain; Z95.1 Presence of aortocoronary bypass graft
CPT/HCPCS: 71275; Q9967